=== PATIENT | female | born 1990 | race Caucasian/White ===

== ENCOUNTER 2016-04-04 06:48 | Inpatient (IN) | payer OTHER ==
[2016-04-04] VITALS (59 sets, daily range): BP systolic 85–150; BP diastolic 38–89; PULSE 64–126; TEMP 96.6–98.9
[~2016-04-04] VITALS: Ht 170.2 cm; Wt 94.5 kg
[2016-04-04] MEDS ORDERED: PRENATAL1 TA7 PO (06:55)
[2016-04-04 07:58] LABS: BASO % 0.2 % (0.0-2.0); EOS # 0.1 (0.0-0.7); EOS % 0.8 % (0-4.0); GRAN # 5.4 (1.4-6.5); GRAN % 64.4 % (42.2-75.2); HEMATOCRIT 37.1 % (37.0-47.0); HEMOGLOBIN 12.5 g/dl (12.5-16.0); LYMPH # 2.4 (1.2-3.4); MEAN CELL VOLUME 89 fl (80.0-100.0); MEAN CORPUSCULAR HEMOGLOBIN 30 pg (27.0-31.0); MEAN CORPUSCULAR HGB CONC 34 g/dl (33.0-37.0); MEAN PLATELET VOLUME 11.6 fl (7.4-10.4); MONO # 0.5 (0.1-0.6); PLATELET COUNT 158 K/mm3 (130-400); RED BLOOD COUNT 4.17 M/mm3 (4.10-5.30); REDCELL DISTRIBUTION WIDTH-CV 13.4 % (11.5-14.5); WHITE BLOOD COUNT 8.4 K/mm3 (4.8-10.8)
[2016-04-04 17:47] LABS: BASO % 0.1 % (0.0-2.0); GRAN # 17.1 (1.4-6.5); GRAN % 83.5 % (42.2-75.2); LYMPH # 1.8 (1.2-3.4); MEAN CELL VOLUME 91 fl (80.0-100.0); MEAN CORPUSCULAR HGB CONC 34 g/dl (33.0-37.0); MEAN PLATELET VOLUME 11.4 fl (7.4-10.4); MONO # 1.4 (0.1-0.6); MONO % 6.8 % (1.7-9.3); PLATELET COUNT 155 K/mm3 (130-400); RED BLOOD COUNT 3.33 M/mm3 (4.10-5.30); REDCELL DISTRIBUTION WIDTH-CV 13.3 % (11.5-14.5)
[2016-04-04 17:48] LABS: HEMATOCRIT 30.2 % (37.0-47.0); HEMOGLOBIN 10.2 g/dl (12.5-16.0); MEAN CORPUSCULAR HEMOGLOBIN 31 pg (27.0-31.0); WHITE BLOOD COUNT 20.5 K/mm3 (4.8-10.8)
[2016-04-05] VITALS: BP 108/64; PULSE 91; TEMP 98.2
[2016-04-05 01:00] VITALS: BP 107/70; PULSE 82; TEMP 98.4
[2016-04-05 01:30] VITALS: BP 116/66; PULSE 87; TEMP 98.4
[2016-04-05 05:30] VITALS: BP 99/64; PULSE 77
[2016-04-05 07:00] VITALS: BP 102/63; PULSE 80; TEMP 98
[2016-04-05 07:34] LABS: BASO # 0.1 (0.0-0.2); BASO % 0.2 % (0.0-2.0); EOS # 0.1 (0.0-0.7); EOS % 0.4 % (0-4.0); GRAN # 15.9 (1.4-6.5); GRAN % 76.8 % (42.2-75.2); LYMPH # 3.1 (1.2-3.4); LYMPH % 15.2 % (20.0-51.0); MEAN CELL VOLUME 90 fl (80.0-100.0); MEAN CORPUSCULAR HGB CONC 34 g/dl (33.0-37.0); MEAN PLATELET VOLUME 10.9 fl (7.4-10.4); MONO # 1.4 (0.1-0.6); MONO % 6.9 % (1.7-9.3); PLATELET COUNT 134 K/mm3 (130-400); RED BLOOD COUNT 3.76 M/mm3 (4.10-5.30); REDCELL DISTRIBUTION WIDTH-CV 13.8 % (11.5-14.5)
[2016-04-05 07:38] LABS: HEMATOCRIT 33.9 % (37.0-47.0); HEMOGLOBIN 11.6 g/dl (12.5-16.0); MEAN CORPUSCULAR HEMOGLOBIN 31 pg (27.0-31.0); WHITE BLOOD COUNT 20.7 K/mm3 (4.8-10.8)
[2016-04-05 20:30] VITALS: BP 115/65; PULSE 96; TEMP 97.2
[2016-04-06] MEDS ORDERED: MOTRIN 600600 MG/TAB PO (07:16)
[2016-04-06] MEDS ORDERED: PERCOCET 325 MG1 TA2 PO (07:17)
[2016-04-06 08:11] VITALS: BP 100/64; PULSE 85; TEMP 97.5
== END 2016-04-06 15:10 | disposition home or self-care (01) | DRG 774 ==
LOC: OB 06:48 → LDR 07:08 → OB 07:08
PROVIDERS: Obstetrics & Gynecology
PROC: 10E0XZZ Delivery of Products of Conception, External Approach (ICD-10-PCS; principal; 2016-04-04)
PROC: 0KQM0ZZ Repair Perineum Muscle, Open Approach (ICD-10-PCS; 2016-04-04)
PROC: 0U9GXZZ Drainage of Vagina, External Approach (ICD-10-PCS; 2016-04-04)
PROC: 3E033VJ Introduction of Other Hormone into Peripheral Vein, Percutaneous Approach (ICD-10-PCS; 2016-04-04)
DX: O48.0 Post-term pregnancy (principal); O90.2 Hematoma of obstetric wound; O70.1 Second degree perineal laceration during delivery; O24.420 Gestational diabetes mellitus in childbirth, diet controlled; O69.81X0 Labor and delivery complicated by cord around neck, without compression, not applicable or unspecified; Z3A.40 40 weeks gestation of pregnancy; Z37.0 Single live birth
CPT/HCPCS: J2590; J7120; P9016; P9040

== ENCOUNTER 2019-05-19 05:50 | Inpatient (IN) | payer BC ==
[2019-05-19] VITALS (28 sets, daily range): BP systolic 96–136; BP diastolic 52–88; PULSE 75–116; TEMP 97.9–98.2
[~2019-05-19] VITALS: Ht 170.2 cm; Wt 97.3 kg
[~2019-05-19 05:50] MED LIST: ANTIVERT 25MG25 MG PO; APRI 0.15 MG-0.1 TAB PO; FISH OIL500 MG PO; MOTRIN 600600 MG/TAB PO; MULTIVITAMIN1 CTB PO; PERCOCET 325 MG1 TA2 PO; PRENATAL1 TA7 PO
[2019-05-19 07:09] LABS: BASO % 0.3 % (0.0-2.0); EOS # 0.2 (0.0-0.7); EOS % 1.7 % (0-4.0); GRAN # 7.4 (1.4-6.5); GRAN % 67.4 % (42.2-75.2); HEMATOCRIT 38.6 % (37.0-47.0); HEMOGLOBIN 12.7 g/dl (12.5-16.0); LYMPH # 2.5 (1.2-3.4); LYMPH % 22.3 % (20.0-51.0); MEAN CELL VOLUME 92 fl (80.0-100.0); MEAN CORPUSCULAR HEMOGLOBIN 30 pg (27.0-31.0); MEAN CORPUSCULAR HGB CONC 33 g/dl (33.0-37.0); MEAN PLATELET VOLUME 11.7 fl (7.4-10.4); MONO # 0.8 (0.1-0.6); MONO % 7.5 % (1.7-9.3); PLATELET COUNT 171 K/mm3 (130-400); RED BLOOD COUNT 4.21 M/mm3 (4.10-5.30); REDCELL DISTRIBUTION WIDTH-CV 13.5 % (11.5-14.5)
--- NOTE | 2019-05-19 07:24 | NUR ---
0610 PATIENT HERE FROM HOME WITH COMPLAINTS OF CONTRACTIONS GETTING STRONGER. SVE 5/90/0 INTACT, NO LEAKING OF FLUID. ASSESSMENT COMPLETE.DR CAMPOS CALLED AND ORDERS GIVEN TO ADMIT FOR LABOR. FHT 135 BABY VERY ACTIVE. 0620 IV STARTED AT THIS TIME.
--- NOTE | 2019-05-19 07:50 | NUR ---
0725 PATIENT SITS ON EDGE OF BED FOR EPIDURAL PLACEMENT. TOLERATES WELL. SEE Jaylin GARRETT CRNA ORDERS FOR QUESTIONS.
--- NOTE | 2019-05-19 11:53 | NUR ---
1115 PATIENT FEELING PRESSURE. SVE BY DR CAMPOS ANTERIOR LIP/100/0. WILL PREPARE FOR DELIVERY 1122 COMPLETE WITH SVE BY DR CAMPOS. 1125 PUSH WITH CONTRACTION 1128 BABY BOY DELIVERED AT THIS TIME VIA BY DR CAMPOS. TOLERATES WELL. CORD CLAMPED AND CUT BY . BABY TO MOMS CHEST. 1130 REPAIR DONE AT THIS TIME BY DR CAMPOS TOLERATES WELL. 1135 PLACENTA DELIVERED AND PITOCIN STARTED PER PROTOCOL AT 333/HR. FUNDUS FIRM BLEEDING WNL.
--- NOTE | 2019-05-19 16:14 | NUR ---
REPORT GIVEN TO Kenna HINDS TO [facility] AT THIS TIME
[2019-05-20 00:25] VITALS: BP 113/78; PULSE 89; TEMP 98.4
[2019-05-20 03:15] VITALS: BP 114/72; PULSE 71; TEMP 97.7
[2019-05-20 07:15] VITALS: BP 108/68; PULSE 76; TEMP 97.8
[2019-05-20] MEDS ORDERED: IBU600 MG PO (09:14)
--- NOTE | 2019-05-20 10:44 | NUR ---
Initial visit attempt; Family resting, Strawhat Sizer left card of congratulations for the of their son and information regarding the availability of spiritual care at our hospital.
== END 2019-05-20 14:54 | disposition home or self-care (01) | DRG 807 ==
LOC: LDRO 05:50 → LDR 06:37 → OB 12:44
PROVIDERS: ADMIT Obstetrics & Gynecology
PROC: 10E0XZZ Delivery of Products of Conception, External Approach (ICD-10-PCS; principal; 2019-05-19)
PROC: 0HQ9XZZ Repair Perineum Skin, External Approach (ICD-10-PCS; 2019-05-19)
PROC: 0UQMXZZ Repair Vulva, External Approach (ICD-10-PCS; 2019-05-19)
PROC: 10907ZC Drainage of Amniotic Fluid, Therapeutic from Products of Conception, Via Natural or Artificial Opening (ICD-10-PCS; 2019-05-19)
DX: O70.0 First degree perineal laceration during delivery (principal); Z37.0 Single live birth; O71.82 Other specified trauma to perineum and vulva; Z3A.39 39 weeks gestation of pregnancy
CPT/HCPCS: J2590; J2795; J7120